=== PATIENT | female | born 1940 | race Caucasian/White ===

== ENCOUNTER 2021-01-07 23:03 | Emergency (ER) | payer MEDICARE ==
[~2021-01-07 23:03] MED LIST: ACLI400A3 IH; ADV250 IH; DIPH50CA4 PO; FOLI1TAB15 PO; GABA600T10 PO; METH2.5T6 PO; PRED5TAB PO; [UNRECOGNIZED DRUG - OTHER] OU
== END 2021-01-08 01:40 | disposition home or self-care (01) ==
LOC: EDH 23:03
DX: R06.02 Shortness of breath (principal); Z99.81 Dependence on supplemental oxygen; J44.9 Chronic obstructive pulmonary disease, unspecified; I10 Essential (primary) hypertension; Z87.891 Personal history of nicotine dependence
CPT/HCPCS: 99281

== ENCOUNTER 2021-12-20 19:20 | Inpatient (IN) | payer MEDICARE ==
[~2021-12-20] VITALS: Ht 172.7 cm; Wt 94.3 kg
[~2021-12-20 19:20] MED LIST changes: +ACLI400A2 IH; -ACLI400A3 IH; +DIPH50CA37 PO; -DIPH50CA4 PO; +ERGO500093 PO; +FOLI0.8T3 PO; +GABA300C PO; +GLUC-29 PO; +LOSA25TA41 PO; +METO-408 PO; +PRED10TA3 PO; +ROSU10TA28 PO
[2021-12-20 19:51] LABS: BASOPHILS % (AUTO) 0.8 % (0.0-5.0); EOSINOPHILS % (AUTO) 0.4 % (0.0-8.0); HEMATOCRIT 27.7 % (36-48); LYMPHOCYTES % (AUTO) 37.9 % (21.0-51.0); MEAN CORPUSCULAR HEMOGLOBIN 24.8 pg (27.0-33.0); MEAN CORPUSCULAR HGB CONC 32.5 g/dL (32.0-36.0); MEAN CORPUSCULAR VOLUME 76.3 fL (79-99); MONOCYTES % (AUTO) 15.5 % (3.0-13.0); PLATELET COUNT (AUTO) 199 K/uL (130-400); RED BLOOD CELL COUNT(AUTO) 3.63 MIL/uL (4.00-5.50); WHITE BLOOD COUNT (AUTO) 2.6 K/uL (4.8-10.8)
[2021-12-20] MEDS ORDERED: 0.9% NACL 500ML IV.SOLN 500 ML IV ONE (20:00)
[2021-12-20 20:02] LABS: CREATININE 1.8 mg/dL (0.5-1.5); POTASSIUM 3.6 mmol/L (3.5-5.1)
[2021-12-20 20:11] LABS: ALBUMIN 2.6 g/dL (3.5-5.0); BILIRUBIN,TOTAL 0.6 mg/dL (0.2-1.0); TOTAL PROTEIN, SERUM 6.3 g/dL (6.0-8.3)
[2021-12-20 20:16] LABS: B-TYPE NATRIURETIC PEPTIDE 62 pg/mL (0-100)
[2021-12-20 20:27] LABS: BAND NEUTROPHILS % (MANUAL) 16 % (0-2); EOSINOPHILS % (MANUAL) 1 % (1-6); LYMPHOCYTES % (MANUAL) 36 % (22-44); MONOCYTES % (MANUAL) 7 % (2-9); REACTIVE LYMPHOCYTES 5 % (0-0); SEGMENTED NEUTROPHILS % 35 % (40-70)
[2021-12-20 20:29] LABS: MAN.DIFF COMMENT-IMPRESSION MANUAL DIFFERENTIAL
[2021-12-20 22:26] LABS: APPEARANCE,URINE Clear (CLEAR); BILIRUBIN,URINE Negative (NEGATIVE); COLOR,URINE Yellow (YELLOW); GLUCOSE, URINE (UA) Negative (NEGATIVE); KETONES,URINE Negative (NEGATIVE); LEUKOCYTE ESTERASE ,URINE Trace (NEGATIVE); NITRATE,URINE Negative (NEGATIVE); OCCULT BLOOD,URINE Large (NEGATIVE); PH,URINE 5.5 (5.0-8.0); PROTEIN,URINE Trace mg/dL (NEGATIVE)
[2021-12-20] MEDS: 0.9%NACL 1000ML 1,000 ML IV SCH (22:33)
[2021-12-20 22:37] LABS: BACTERIA,URINE None Seen /HPF (None Seen); HYALINE CASTS, URINE 0-1 /LPF (0-1 /LPF); SQUAMOUS EPITHELIAL CELL,UR Rare /HPF (0-2); WBC,URINE 0-1 /HPF (0-1)
[2021-12-20] MEDS ORDERED: ACETAMINOPHEN 325 MG TAB PO PRN (23:00)
[2021-12-20] MEDS ORDERED: ONDANSETRON 4MG INJ IV PRN (23:00)
[2021-12-21] VITALS (7 sets, daily range): BP systolic 90–116; BP diastolic 40–56
[2021-12-21 04:43] LABS: EOSINOPHILS % (AUTO) 0.3 % (0.0-8.0); HEMATOCRIT 28.1 % (36-48); LYMPHOCYTES % (AUTO) 54.4 % (21.0-51.0); MEAN CORPUSCULAR HEMOGLOBIN 24.9 pg (27.0-33.0); MEAN CORPUSCULAR VOLUME 77.6 fL (79-99); MONOCYTES % (AUTO) 14.1 % (3.0-13.0); NEUTROPHILS % (AUTO) 29.9 % (40.0-77.0); PLATELET COUNT (AUTO) 192 K/uL (130-400); RED BLOOD CELL COUNT(AUTO) 3.62 MIL/uL (4.00-5.50); RED CELL DISTRIBUTION WIDTH 16.1 % (11.0-15.5)
[2021-12-21 05:19] LABS: CREATININE 1.7 mg/dL (0.5-1.5); POTASSIUM 3.4 mmol/L (3.5-5.1)
[2021-12-21 05:22] LABS: MAGNESIUM 1.9 mg/dL (1.80-2.40); PHOSPHORUS 3.4 mg/dL (2.5-4.9)
[2021-12-21] MEDS ORDERED: FUROSEMIDE 40MG VIAL IVP SCH (09:00)
[2021-12-21] MEDS: FAMOTIDINE 20MG TAB PO SCH (10:57)
[2021-12-21] MEDS: HEPARIN 5,000 UNIT VIAL SQ SCH ×3 (11:00→20:21)
[2021-12-21] MEDS: 0.9%NACL 1000ML 1,000 ML IV SCH (11:20)
[2021-12-22 03:46] VITALS: BP 91/59
[2021-12-22 05:02] LABS: BASOPHILS % (AUTO) 0.5 % (0.0-5.0); EOSINOPHILS % (AUTO) 0.5 % (0.0-8.0); HEMATOCRIT 24.3 % (36-48); LYMPHOCYTES % (AUTO) 48.5 % (21.0-51.0); MEAN CORPUSCULAR HEMOGLOBIN 24.4 pg (27.0-33.0); MEAN CORPUSCULAR HGB CONC 32.1 g/dL (32.0-36.0); MEAN CORPUSCULAR VOLUME 75.9 fL (79-99); MONOCYTES % (AUTO) 16.8 % (3.0-13.0); NEUTROPHILS % (AUTO) 33.7 % (40.0-77.0); PLATELET COUNT (AUTO) 155 K/uL (130-400); RED CELL DISTRIBUTION WIDTH 15.9 % (11.0-15.5)
[2021-12-22 05:23] LABS: BILIRUBIN,TOTAL 0.8 mg/dL (0.2-1.0); CREATININE 1.6 mg/dL (0.5-1.5); POTASSIUM 3.3 mmol/L (3.5-5.1); TOTAL PROTEIN, SERUM 5.3 g/dL (6.0-8.3)
[2021-12-22] MEDS ORDERED: FURO20TA4 PO (06:48)
[2021-12-22] MEDS ORDERED: FLUT1BLS3 IH (06:50)
[2021-12-22] MEDS ORDERED: FLUO5DRO3 OU (06:50)
[2021-12-22 07:20] VITALS: BP 88/48
[2021-12-22] MEDS: FAMOTIDINE 20MG TAB PO SCH (09:43)
[2021-12-22] MEDS: HEPARIN 5,000 UNIT VIAL SQ SCH ×3 (09:46→20:32)
[2021-12-22 11:15] VITALS: BP 111/70
[2021-12-22] MEDS: FOLIC ACID 1 MG TABLET PO SCH (13:51)
[2021-12-22 15:20] VITALS: BP 113/68
[2021-12-22 20:32] VITALS: BP 121/64
[2021-12-22] MEDS: 0.9%NACL 1000ML 1,000 ML IV SCH (20:33)
[2021-12-22] MEDS ORDERED: GABAPENTIN 300 MG CAPSULE PO SCH (21:00)
[2021-12-22] MEDS ORDERED: ATORVASTATIN 20 MG TABLET PO SCH (21:00)
[2021-12-23 00:11] VITALS: BP 102/58
[2021-12-23 04:01] VITALS: BP 115/97
[2021-12-23 04:31] LABS: BASOPHILS % (AUTO) 0.3 % (0.0-5.0); EOSINOPHILS % (AUTO) 0.3 % (0.0-8.0); HEMATOCRIT 26.1 % (36-48); LYMPHOCYTES % (AUTO) 44.4 % (21.0-51.0); MEAN CORPUSCULAR HEMOGLOBIN 24.4 pg (27.0-33.0); MEAN CORPUSCULAR HGB CONC 31.8 g/dL (32.0-36.0); MEAN CORPUSCULAR VOLUME 76.8 fL (79-99); MONOCYTES % (AUTO) 16.1 % (3.0-13.0); NEUTROPHILS % (AUTO) 38.6 % (40.0-77.0); PLATELET COUNT (AUTO) 166 K/uL (130-400); RED CELL DISTRIBUTION WIDTH 15.9 % (11.0-15.5)
[2021-12-23 04:49] LABS: ALBUMIN 2.1 g/dL (3.5-5.0); BILIRUBIN,TOTAL 0.6 mg/dL (0.2-1.0); CREATININE 1.7 mg/dL (0.5-1.5); POTASSIUM 3.7 mmol/L (3.5-5.1); TOTAL PROTEIN, SERUM 5.5 g/dL (6.0-8.3)
[2021-12-23 04:58] LABS: BAND NEUTROPHILS % (MANUAL) 6 % (0-2); LYMPHOCYTES % (MANUAL) 53 % (22-44); MAN.DIFF COMMENT-IMPRESSION MANUAL DIFFERENTIAL; MONOCYTES % (MANUAL) 8 % (2-9); SEGMENTED NEUTROPHILS % 33 % (40-70)
[2021-12-23 08:00] VITALS: BP 114/60
[2021-12-23] MEDS ORDERED: FLUOROMETHOLONE OU SCH (09:00)
[2021-12-23] MEDS ORDERED: GLUCOSAMINE-CHONDROITIN PO SCH (09:00)
[2021-12-23] MEDS ORDERED: ***HM***(Fluticasone/Umeclidin/Vilanter (Trelegy Ellipta 100-62.5- IH SCH (09:00)
[2021-12-23] MEDS ORDERED: PREDNISONE 5 MG TABLET PO SCH (09:00)
[2021-12-23] MEDS ORDERED: LACTULOSE 20 GM/30 ML UDCUP PO SCH (09:30)
[2021-12-23] MEDS: HEPARIN 5,000 UNIT VIAL SQ SCH ×2 (09:32→13:57)
[2021-12-23] MEDS: FAMOTIDINE 20MG TAB PO SCH (09:33)
[2021-12-23] MEDS: FOLIC ACID 1 MG TABLET PO SCH (09:33)
[2021-12-23 12:00] VITALS: BP 111/72
[2021-12-28] MEDS ORDERED: ERGOCALCIFEROL (VITAMIN D2) 50,000 UNIT CAPSULE PO SCH (09:00)
== END 2021-12-23 14:33 | DRG 683 ==
LOC: EDH 19:20 → OBSVTOIN 22:53 → EDHIP 22:53 → 3DH 12-21 00:09
PROVIDERS: ADMIT Internal Medicine; ATTEND Internal Medicine
DX: N17.9 Acute kidney failure, unspecified (principal); J44.1 Chronic obstructive pulmonary disease with (acute) exacerbation; N39.0 Urinary tract infection, site not specified; E86.0 Dehydration; D64.9 Anemia, unspecified; Z20.822 Contact with and (suspected) exposure to COVID-19; N18.32 Chronic kidney disease, stage 3b; M06.9 Rheumatoid arthritis, unspecified; E11.22 Type 2 diabetes mellitus with diabetic chronic kidney disease; E66.9 Obesity, unspecified; I12.9 Hypertensive chronic kidney disease with stage 1 through stage 4 chronic kidney disease, or unspecified chronic kidney disease; I25.10 Atherosclerotic heart disease of native coronary artery without angina pectoris; Z80.8 Family history of malignant neoplasm of other organs or systems; Z68.31 Body mass index [BMI] 31.0-31.9, adult; Z99.81 Dependence on supplemental oxygen
CPT/HCPCS: 36415; 71045; 73562; 76700; 80048; 80053; 81001; 83735; 83880; 84100; 84484; 85025; 87635; 87804; 93005; 93925; 93970; 97039; C9803; G0378; J1644; J7030; J7040; J7512

== ENCOUNTER 2022-01-07 11:17 | Inpatient (IN) | payer MEDICARE ==
[~2022-01-07] VITALS: Ht 170.2 cm; Wt 94.6 kg
[~2022-01-07 11:17] MED LIST changes: -ACLI400A2 IH; -ADV250 IH; -DIPH50CA37 PO; +FLUO5DRO3 OU; +FLUT1BLS3 IH; -FOLI0.8T3 PO; +FURO20TA4 PO; -GABA600T10 PO; -LOSA25TA41 PO; -METH2.5T6 PO; -PRED10TA3 PO; -[UNRECOGNIZED DRUG - OTHER] OU
[2022-01-07] MEDS ORDERED: ZOSYN 3.375GM +NS 50ML IV SCH ×3 (12:00→21:00)
[2022-01-07 12:12] LABS: BASOPHILS % (AUTO) 0.2 % (0.0-5.0); EOSINOPHILS % (AUTO) 0.2 % (0.0-8.0); HEMATOCRIT 28.6 % (36-48); LYMPHOCYTES % (AUTO) 19.3 % (21.0-51.0); MEAN CORPUSCULAR HEMOGLOBIN 23.3 pg (27.0-33.0); MEAN CORPUSCULAR HGB CONC 31.5 g/dL (32.0-36.0); MEAN CORPUSCULAR VOLUME 74.1 fL (79-99); MONOCYTES % (AUTO) 7.9 % (3.0-13.0); NEUTROPHILS % (AUTO) 71.9 % (40.0-77.0); PLATELET COUNT (AUTO) 230 K/uL (130-400); RED BLOOD CELL COUNT(AUTO) 3.86 MIL/uL (4.00-5.50); RED CELL DISTRIBUTION WIDTH 17.1 % (11.0-15.5); WHITE BLOOD COUNT (AUTO) 4.2 K/uL (4.8-10.8)
[2022-01-07 12:29] LABS: INR 1.1 (0.85-1.15); PROTHROMBIN TIME 11.9 SEC (9.6-11.6)
[2022-01-07 12:30] LABS: PARTIAL THROMBOPLASTIN TIME 25.4 SEC (26.3-35.5)
[2022-01-07] MEDS ORDERED: 0.9%NACL 1000ML 1,779 ML IV ONE (12:30)
[2022-01-07 12:34] LABS: CREATININE 1.8 mg/dL (0.5-1.5); POTASSIUM 4.4 mmol/L (3.5-5.1)
[2022-01-07 12:36] LABS: ABG BASE EXCESS 4.7 mmol/L (-2.0-3.0); ABG HCO3 27.6 mmol/L (21.0-28.0); ABG OXYGEN SATURATION 94.1 % (95.0-99.0); ABG PCO2 34 mmHg (32-45)
[2022-01-07 12:38] LABS: APPEARANCE,URINE CLEAR (CLEAR); BILIRUBIN,URINE NEGATIVE (NEGATIVE); COLOR,URINE YELLOW (YELLOW); GLUCOSE, URINE (UA) NEGATIVE (NEGATIVE); KETONES,URINE NEGATIVE (NEGATIVE); LEUKOCYTE ESTERASE ,URINE NEGATIVE (NEGATIVE); NITRATE,URINE NEGATIVE (NEGATIVE); OCCULT BLOOD,URINE LARGE (NEGATIVE); PROTEIN,URINE NEGATIVE (NEGATIVE); UROBILINOGEN,URINE 0.2 mg/dL (0.2-1.0)
[2022-01-07 12:38] LABS: ALBUMIN 1.7 g/dL (3.5-5.0); BILIRUBIN,TOTAL 0.5 mg/dL (0.2-1.0); MAGNESIUM 2.2 mg/dL (1.80-2.40); TOTAL PROTEIN, SERUM 5.6 g/dL (6.0-8.3)
[2022-01-07 13:03] LABS: B-TYPE NATRIURETIC PEPTIDE 51 pg/mL (0-100)
[2022-01-07 13:05] LABS: BACTERIA,URINE Few /HPF (None Seen); SQUAMOUS EPITHELIAL CELL,UR Rare /HPF (0-2); WBC,URINE 0-1 /HPF (0-1)
[2022-01-07] MEDS ORDERED: HEPARIN 25,000 UNITS/250ML D5W 250 ML IV SCH (13:30)
[2022-01-07] MEDS ORDERED: ACETAMINOPHEN 325 MG TAB PO PRN (14:00)
[2022-01-07] MEDS ORDERED: ONDANSETRON 4MG INJ IVP PRN (14:00)
[2022-01-07] MEDS ORDERED: PHENYLEPHRINE HCL 10 MG in 0.9% NACL 250ML 250 ML IV PRN (16:30)
[2022-01-07] MEDS ORDERED: SOLU-MEDROL 40MG VIAL IVP SCH (19:30)
[2022-01-07 20:15] LABS: INR 1.11 (0.85-1.15)
[2022-01-07 20:16] LABS: PARTIAL THROMBOPLASTIN TIME 28.6 SEC (26.3-35.5)
[2022-01-07 22:30] VITALS: BP 97/52
[2022-01-07] MEDS ORDERED: HEPARIN 5,000 UNIT VIAL ONE (22:32)
[2022-01-07 22:45] VITALS: BP 93/49
[2022-01-07 23:00] VITALS: BP 99/51
[2022-01-07 23:21] VITALS: BP 95/36
[2022-01-07] MEDS: SOLU-MEDROL 40MG VIAL IVP SCH (23:25)
[2022-01-07 23:30] VITALS: BP 90/44
[2022-01-07 23:45] VITALS: BP 103/37
[2022-01-08] VITALS (15 sets, daily range): BP systolic 87–139; BP diastolic 37–65
[2022-01-08] MEDS ORDERED: ERGO500093 PO (02:22)
[2022-01-08] MEDS ORDERED: MELA10TA2 PO (02:22)
[2022-01-08] MEDS ORDERED: LEVO500T90 PO (02:22)
[2022-01-08] MEDS ORDERED: SENN8.6T32 PO (02:22)
[2022-01-08] MEDS ORDERED: MULT-1278 PO (02:22)
[2022-01-08] MEDS ORDERED: LACT10SO9 PO (02:22)
[2022-01-08] MEDS ORDERED: ACET325T51 PO (02:22)
[2022-01-08] MEDS ORDERED: ZINC220C6 PO (02:22)
[2022-01-08] MEDS ORDERED: MIDO10TA PO (02:22)
[2022-01-08] MEDS ORDERED: IPRA3AMP24 IH (02:22)
[2022-01-08] MEDS ORDERED: SILV45GE TP (02:22)
[2022-01-08] MEDS ORDERED: ONDA4TAB10 PO (02:22)
[2022-01-08] MEDS ORDERED: ASCO500T20 PO (02:22)
[2022-01-08 04:45] LABS: HEMATOCRIT 25.9 % (36-48); LYMPHOCYTES % (AUTO) 13.3 % (21.0-51.0); MEAN CORPUSCULAR HEMOGLOBIN 23.2 pg (27.0-33.0); MEAN CORPUSCULAR HGB CONC 30.9 g/dL (32.0-36.0); MEAN CORPUSCULAR VOLUME 75.1 fL (79-99); MONOCYTES % (AUTO) 3.4 % (3.0-13.0); NEUTROPHILS % (AUTO) 82.5 % (40.0-77.0); PLATELET COUNT (AUTO) 174 K/uL (130-400); RED BLOOD CELL COUNT(AUTO) 3.45 MIL/uL (4.00-5.50); RED CELL DISTRIBUTION WIDTH 17.1 % (11.0-15.5); WHITE BLOOD COUNT (AUTO) 2.6 K/uL (4.8-10.8)
[2022-01-08] MEDS: MIDODRINE HCL 5 MG TABLET PO SCH ×3 (05:11→20:42)
[2022-01-08 05:19] LABS: ALBUMIN 1.6 g/dL (3.5-5.0); BILIRUBIN,TOTAL 0.4 mg/dL (0.2-1.0); CREATININE 1.6 mg/dL (0.5-1.5); MAGNESIUM 2.1 mg/dL (1.80-2.40); POTASSIUM 3.8 mmol/L (3.5-5.1)
[2022-01-08 05:45] LABS: BAND NEUTROPHILS % (MANUAL) 19 % (0-2); LYMPHOCYTES % (MANUAL) 3 % (22-44); MAN.DIFF COMMENT-IMPRESSION MANUAL DIFFERENTIAL; PLATELET MORPHOLOGY COMMENT ADEQUATE; SEGMENTED NEUTROPHILS % 78 % (40-70)
[2022-01-08 06:09] LABS: B-TYPE NATRIURETIC PEPTIDE 89 pg/mL (0-100)
[2022-01-08] MEDS: SOLU-MEDROL 40MG VIAL IVP SCH ×2 (06:16→14:08)
[2022-01-08] MEDS: PANTOPRAZOLE 40 MG/VIAL IVP SCH (12:00)
[2022-01-08] MEDS: BUDESONIDE 0.5 MG/2 ML INH IH SCH (18:19)
[2022-01-08] MEDS: IPRATROPIUM/ALBUTEROL SULFATE 3 ML SOLUTION IH SCH ×2 (18:20→23:34)
[2022-01-08] MEDS: HEPARIN 5,000 UNIT VIAL SQ SCH (20:39)
[2022-01-09] VITALS (7 sets, daily range): BP systolic 90–110; BP diastolic 44–67
[2022-01-09 04:59] LABS: BASOPHILS % (AUTO) 0.3 % (0.0-5.0); HEMATOCRIT 23.3 % (36-48); LYMPHOCYTES % (AUTO) 20.1 % (21.0-51.0); MEAN CORPUSCULAR HEMOGLOBIN 23.4 pg (27.0-33.0); MEAN CORPUSCULAR HGB CONC 30.9 g/dL (32.0-36.0); MEAN CORPUSCULAR VOLUME 75.6 fL (79-99); MONOCYTES % (AUTO) 7.9 % (3.0-13.0); NEUTROPHILS % (AUTO) 71.1 % (40.0-77.0); PLATELET COUNT (AUTO) 202 K/uL (130-400); RED BLOOD CELL COUNT(AUTO) 3.08 MIL/uL (4.00-5.50); RED CELL DISTRIBUTION WIDTH 17.1 % (11.0-15.5); WHITE BLOOD COUNT (AUTO) 3.4 K/uL (4.8-10.8)
[2022-01-09 05:18] LABS: ALBUMIN 1.7 g/dL (3.5-5.0); BILIRUBIN,TOTAL 0.4 mg/dL (0.2-1.0); CREATININE 1.7 mg/dL (0.5-1.5); MAGNESIUM 2.4 mg/dL (1.80-2.40); PHOSPHORUS 4.5 mg/dL (2.5-4.9); POTASSIUM 3.7 mmol/L (3.5-5.1)
[2022-01-09] MEDS: MIDODRINE HCL 5 MG TABLET PO SCH ×3 (06:14→22:08)
[2022-01-09] MEDS: BUDESONIDE 0.5 MG/2 ML INH IH SCH ×2 (06:19→18:36)
[2022-01-09] MEDS: IPRATROPIUM/ALBUTEROL SULFATE 3 ML SOLUTION IH SCH ×4 (06:19→23:58)
[2022-01-09] MEDS: PANTOPRAZOLE 40 MG/VIAL IVP SCH (08:03)
[2022-01-09] MEDS: HEPARIN 5,000 UNIT VIAL SQ SCH ×2 (08:08→21:13)
[2022-01-09] MEDS ORDERED: CEFTRIAXONE 1G VIAL IVP SCH (18:30)
[2022-01-09] MEDS ORDERED: LACTULOSE 20 GM/30 ML UDCUP PO PRN (21:00)
[2022-01-10 03:56] LABS: HEMATOCRIT 25.7 % (36-48); MEAN CORPUSCULAR HEMOGLOBIN 22.7 pg (27.0-33.0); MEAN CORPUSCULAR HGB CONC 29.6 g/dL (32.0-36.0); MEAN CORPUSCULAR VOLUME 76.7 fL (79-99); RED BLOOD CELL COUNT(AUTO) 3.35 MIL/uL (4.00-5.50); RED CELL DISTRIBUTION WIDTH 17.2 % (11.0-15.5); WHITE BLOOD COUNT (AUTO) 3.7 K/uL (4.8-10.8)
[2022-01-10 03:57] VITALS: BP 93/55
[2022-01-10 04:12] LABS: CREATININE 1.5 mg/dL (0.5-1.5); MAGNESIUM 2.4 mg/dL (1.80-2.40); PHOSPHORUS 3.9 mg/dL (2.5-4.9); POTASSIUM 3.3 mmol/L (3.5-5.1)
[2022-01-10] MEDS: IPRATROPIUM/ALBUTEROL SULFATE 3 ML SOLUTION IH SCH ×2 (06:23→11:13)
[2022-01-10] MEDS: BUDESONIDE 0.5 MG/2 ML INH IH SCH (06:23)
[2022-01-10] MEDS: MIDODRINE HCL 5 MG TABLET PO SCH ×2 (06:48→13:05)
[2022-01-10 07:40] VITALS: BP 100/56
[2022-01-10] MEDS: PANTOPRAZOLE 40 MG/VIAL IVP SCH (08:56)
[2022-01-10] MEDS: HEPARIN 5,000 UNIT VIAL SQ SCH (08:57)
[2022-01-10] MEDS ORDERED: PREDNISONE 10 MG TABLET PO SCH (09:00)
[2022-01-10 11:25] VITALS: BP 107/56
[2022-01-10] MEDS ORDERED: POTASSIUM CHLORIDE 10% ELIXIR 20 MEQ/15 ML UDCUP PO PRN (13:00)
[2022-01-10] MEDS ORDERED: POTASSIUM CHLORIDE 20MEQ/100ML 100 ML IV PRN (13:00)
[2022-01-10] MEDS ORDERED: LIDOCAINE HCL-MPF 1% 2ML VIAL IV PRN (13:00)
[2022-01-10] MEDS ORDERED: KCL 20 MEQ ERTAB PO PRN (13:00)
[2022-01-10 15:35] VITALS: BP 127/68
== END 2022-01-10 17:10 | disposition hospice, home (50) | DRG 193 ==
LOC: EDH 11:17 → EDHIP 13:45 → 2BH 22:23 → 3DH 01-08 16:01
PROVIDERS: ADMIT Internal Medicine Infectious Disease; ATTEND Internal Medicine Infectious Disease
DX: J18.9 Pneumonia, unspecified organism (principal); J80 Acute respiratory distress syndrome; E87.1 Hypo-osmolality and hyponatremia; J44.0 Chronic obstructive pulmonary disease with (acute) lower respiratory infection; N18.9 Chronic kidney disease, unspecified; I95.9 Hypotension, unspecified; E87.8 Other disorders of electrolyte and fluid balance, not elsewhere classified; D72.810 Lymphocytopenia; R53.81 Other malaise; E83.51 Hypocalcemia; E11.22 Type 2 diabetes mellitus with diabetic chronic kidney disease; Z20.822 Contact with and (suspected) exposure to COVID-19; E11.51 Type 2 diabetes mellitus with diabetic peripheral angiopathy without gangrene; E66.9 Obesity, unspecified; I12.9 Hypertensive chronic kidney disease with stage 1 through stage 4 chronic kidney disease, or unspecified chronic kidney disease; Z51.5 Encounter for palliative care; Z87.440 Personal history of urinary (tract) infections; Z90.49 Acquired absence of other specified parts of digestive tract; Z98.49 Cataract extraction status, unspecified eye; Z99.81 Dependence on supplemental oxygen; Z87.891 Personal history of nicotine dependence; Z80.8 Family history of malignant neoplasm of other organs or systems; Z82.49 Family history of ischemic heart disease and other diseases of the circulatory system; Z85.118 Personal history of other malignant neoplasm of bronchus and lung; Z68.32 Body mass index [BMI] 32.0-32.9, adult
CPT/HCPCS: 36415; 36600; 71045; 80048; 80053; 81001; 82010; 82435; 82550; 82803; 82947; 82948; 83605; 83735; 83880; 84100; 84132; 84145; 84295; 84484; 85018; 85025; 85027; 85378; 85610; 85730; 87040; 87077; 87088; 87186; 87635; 87804; 92526; 92610; 93005; 93970; 94640; 94664; 99291; C9113; G0378; J0696; J1644; J2543; J2920; J7512